=== PATIENT | female | born 1950 | race Caucasian/White ===

== ENCOUNTER → 2024-03-01 08:17 | Outpatient (REF) | payer MEDICARE, OTHER, SELFPAY ==
[2024-03-01 09:41] LABS: % Basophils 1.2 % (0-2); % Eosinophils 6.9 % (0-6); % Lymphocytes 35.5 % (20.5-51.1); % Monocytes 19.9 % (1.7-9.3); % Neutrophils 36.5 % (42.2-75.2); Absolute Eosinophils 0.2 10^3/uL (0-0.7); Absolute Lymphocytes 1.2 10^3/uL (1.2-3.4); Absolute Monocytes 0.7 10^3/uL (0.1-0.6); Absolute Neutrophils 1.3 10^3/uL (1.4-6.5); Hematocrit 42.2 % (37.0-47.0); Hemoglobin 14.2 g/dL (12.0-16.0); Mean Corp Hgb Conc. 33.6 g/dL (33.0-37.0); Mean Corpuscular Hgb 31.6 pg (27.0-31.0); Mean Corpuscular Volume 93.8 fL (81.0-99.0); Mean Platelet Volume 9.5 fL (7.4-10.4); Nucleated Red Blood Cells % 0 %; Platelet Count 276 10^3/uL (130-400); Red Cell Dist. Width 12.9 % (11.5-14.5); White Blood Cell Count 3.5 10^3/uL (4.8-10.8)
[2024-03-01 10:28] LABS: ALT (SGPT) 17 U/L (0-35); AST (SGOT) 31 U/L (14-36); Albumin 4.3 g/dl (3.5-5.0); Alkaline Phosphatase 90 U/L (38-126); Blood Urea Nitrogen 17 mg/dl (7-17); Calcium 9.4 mg/dl (8.4-10.2); Carbon Dioxide 30 mmol/L (22-30); Chloride 102 mmol/L (98-107); Glucose 87 mg/dl (70-99); HDL Cholesterol 95 mg/dl; LDL Cholesterol, Calculated 128 mg/dl; Potassium 4.5 mmol/L (3.5-5.1); Sodium 142 mmol/L (135-145); Total Bilirubin 0.6 mg/dl (0.2-1.3); Total Cholesterol 238 mg/dl (50-199); Total Protein 6.8 g/dl (6.3-8.2); Triglyceride 75 mg/dl (10-149); Very Low Density Lipoprotein 15 mg/dl (0-30); eGFR > 60.00
== END ==
LOC: REG 08:17
PROVIDERS: ATTENDING PHYSICIAN Physician Assistant
DX: E78.00 Pure hypercholesterolemia, unspecified (principal); D64.9 Anemia, unspecified; R79.9 Abnormal finding of blood chemistry, unspecified
CPT/HCPCS: 36415; 80053; 80061; 85025

== ENCOUNTER → 2024-04-14 09:21 | Outpatient (REF) | payer MEDICARE, OTHER, SELFPAY ==
[2024-04-14 10:28] LABS: Erythrocyte Sed Rate 10 mm/hour (0-20)
[2024-04-14 10:51] LABS: C-Reactive Protein < 5.00 mg/L (0.0-10.00)
== END ==
LOC: REG 09:21
PROVIDERS: ATTENDING PHYSICIAN Physician Assistant
DX: R40.4 Transient alteration of awareness (principal); H53.9 Unspecified visual disturbance; R51.9 Headache, unspecified; D72.819 Decreased white blood cell count, unspecified
CPT/HCPCS: 36415; 85652; 86140

== ENCOUNTER → 2024-04-19 08:59 | Outpatient (REF) | payer MEDICARE, OTHER, SELFPAY | LOC: HWRCS 08:59 | PROVIDERS: ATTENDING PHYSICIAN Physician Assistant | DX: R40.4 Transient alteration of awareness (principal); H53.9 Unspecified visual disturbance; R51.9 Headache, unspecified | CPT/HCPCS: 93306 ==

== ENCOUNTER → 2024-05-05 09:22 | Outpatient (REF) | payer MEDICARE, OTHER, SELFPAY | LOC: HWRAD 09:22 | PROVIDERS: ATTENDING PHYSICIAN Physician Assistant | DX: M85.80 Other specified disorders of bone density and structure, unspecified site (principal); M81.0 Age-related osteoporosis without current pathological fracture | CPT/HCPCS: 77080 ==

== ENCOUNTER → 2024-05-10 09:50 | Outpatient (REF) | payer MEDICARE, OTHER, SELFPAY ==
[2024-05-10 10:38] LABS: % Basophils 0.5 % (0-2); % Eosinophils 4.4 % (0-6); % Immature Granulocytes 0.2 % (0-0.5); % Lymphocytes 34.6 % (20.5-51.1); % Monocytes 9.2 % (1.7-9.3); % Neutrophils 51.1 % (42.2-75.2); Absolute Eosinophils 0.2 10^3/uL (0-0.7); Absolute Lymphocytes 1.5 10^3/uL (1.2-3.4); Absolute Monocytes 0.4 10^3/uL (0.1-0.6); Absolute Neutrophils 2.2 10^3/uL (1.4-6.5); Hematocrit 41.3 % (37.0-47.0); Hemoglobin 14.2 g/dL (12.0-16.0); Mean Corp Hgb Conc. 34.4 g/dL (33.0-37.0); Mean Corpuscular Hgb 31.6 pg (27.0-31.0); Mean Platelet Volume 9.3 fL (7.4-10.4); Nucleated Red Blood Cells % 0 %; Platelet Count 294 10^3/uL (130-400); Red Blood Cell Count 4.49 10^6/uL (4.20-5.40); Red Cell Dist. Width 12.4 % (11.5-14.5); White Blood Cell Count 4.4 10^3/uL (4.8-10.8)
== END ==
LOC: REG 09:50
PROVIDERS: ATTENDING PHYSICIAN Physician Assistant
DX: D72.819 Decreased white blood cell count, unspecified (principal)
CPT/HCPCS: 36415; 85025

== ENCOUNTER → 2024-05-21 11:06 | Outpatient (REF) | payer MEDICARE, OTHER, SELFPAY | LOC: MRI 3T 11:06 | PROVIDERS: ATTENDING PHYSICIAN Physician Assistant | DX: R40.4 Transient alteration of awareness (principal); H53.9 Unspecified visual disturbance; R51.9 Headache, unspecified | CPT/HCPCS: 70553; A9575 ==

== ENCOUNTER → 2024-06-02 11:05 | Outpatient (REF) | payer MEDICARE, OTHER, SELFPAY | LOC: RAD 11:05 | PROVIDERS: ATTENDING PHYSICIAN Physician Assistant | DX: R40.4 Transient alteration of awareness (principal); H53.9 Unspecified visual disturbance; R51.9 Headache, unspecified; I34.0 Nonrheumatic mitral (valve) insufficiency; E78.00 Pure hypercholesterolemia, unspecified; R41.82 Altered mental status, unspecified | CPT/HCPCS: 93880 ==

== ENCOUNTER → 2024-07-01 08:28 | Outpatient (REF) | payer MEDICARE, OTHER, SELFPAY | LOC: WDC 08:28 | PROVIDERS: ATTENDING PHYSICIAN Physician Assistant | DX: Z12.31 Encounter for screening mammogram for malignant neoplasm of breast (principal) | CPT/HCPCS: 77063; 77067 ==

== ENCOUNTER → 2024-08-02 10:15 | Outpatient (REF) | payer MEDICARE, OTHER, SELFPAY | LOC: RAD 10:15 | PROVIDERS: ATTENDING PHYSICIAN Urology; FAMILY PHYSICIAN Physician Assistant | DX: N13.5 Crossing vessel and stricture of ureter without hydronephrosis (principal) | CPT/HCPCS: 78708; A9539 ==

== ENCOUNTER → 2024-08-18 09:26 | Outpatient (REF) | payer MEDICARE, OTHER, SELFPAY ==
[2024-08-18 11:00] LABS: Blood Urea Nitrogen 22 mg/dl (7-17); Calcium 9.1 mg/dl (8.4-10.2); Carbon Dioxide 29 mmol/L (22-30); Chloride 103 mmol/L (98-107); Glucose 89 mg/dl (70-99); Potassium 4.8 mmol/L (3.5-5.1); Sodium 139 mmol/L (135-145); eGFR > 60.00
== END ==
LOC: REG 09:26
PROVIDERS: ATTENDING PHYSICIAN Urology; FAMILY PHYSICIAN Physician Assistant
DX: N13.5 Crossing vessel and stricture of ureter without hydronephrosis (principal)
CPT/HCPCS: 36415; 80048

== ENCOUNTER → 2024-08-23 07:12 | Outpatient (REF) | payer MEDICARE, OTHER, SELFPAY | LOC: RAD 07:12 | PROVIDERS: ATTENDING PHYSICIAN Urology; FAMILY PHYSICIAN Physician Assistant | DX: N13.5 Crossing vessel and stricture of ureter without hydronephrosis (principal); N13.30 Unspecified hydronephrosis | CPT/HCPCS: 74178; Q9967 ==

== ENCOUNTER → 2024-09-30 08:37 | Outpatient (REF) | payer MEDICARE, OTHER, SELFPAY ==
[2024-09-30 11:32] LABS: Hematocrit 39.3 % (37.0-47.0); Mean Corp Hgb Conc. 33.1 g/dL (33.0-37.0); Mean Corpuscular Hgb 30.4 pg (27.0-31.0); Mean Platelet Volume 9.6 fL (7.4-10.4); Platelet Count 302 10^3/uL (130-400); Red Blood Cell Count 4.27 10^6/uL (4.20-5.40); Red Cell Dist. Width 13.3 % (11.5-14.5); White Blood Cell Count 4.4 10^3/uL (4.8-10.8)
== END ==
LOC: SDSPAT 08:37
PROVIDERS: ATTENDING PHYSICIAN Urology; FAMILY PHYSICIAN Physician Assistant
DX: Z01.818 Encounter for other preprocedural examination (principal)
CPT/HCPCS: 36415; 85027

== ENCOUNTER 2024-10-14 06:19 | Day surgery (SDC) | payer MEDICARE, OTHER, SELFPAY ==
[2024-09-30 12:45] VITALS: BMI 23.6
[2024-10-14] VITALS (7 sets, daily range): BP systolic 136–162; BP diastolic 56–73; BMI 23.6
[2024-10-14] MEDS: NORMOSOL-R/PLASMALYTE-A 1000 IV (08:16)
== END 2024-10-14 11:05 | disposition home or self-care (01) ==
LOC: SDS 06:19
PROVIDERS: ATTENDING PHYSICIAN Urology
DX: N13.5 Crossing vessel and stricture of ureter without hydronephrosis (principal)
CPT/HCPCS: 52332; 74420; 76000; A4300; C1726; C1769; C2617

== ENCOUNTER → 2024-10-15 13:47 | Outpatient (REF) | payer MEDICARE, OTHER, SELFPAY ==
[2024-10-15 17:36] LABS: Urine Albumin 4+ (Neg - Trace); Urine Bilirubin Negative (Negative); Urine Character Slightly Cloudy (Clear); Urine Color Yellow; Urine Glucose Negative (Negative); Urine Ketone 1+ (Negative); Urine Leukocyte 3+ (Negative); Urine Nitrite Positive (Negative); Urine Occult Blood 4+ (Negative); Urine Urobilinogen 1+ (Neg - 1+)
[2024-10-15 17:46] LABS: Urine Squamous Cell 0-2 /LPF (Few)
[2024-10-15 17:47] LABS: Urine Bacteria Few (Negative); Urine Red Blood Cell >100 /HPF (0-2)
== END ==
LOC: CLAB 13:47
PROVIDERS: ATTENDING PHYSICIAN Urology
DX: N39.0 Urinary tract infection, site not specified (principal)
CPT/HCPCS: 81003; 81015; 87086

== ENCOUNTER → 2024-10-18 07:30 | Outpatient (REF) | payer MEDICARE, OTHER, SELFPAY ==
[2024-10-18 08:57] LABS: % Basophils 0.6 % (0-2); % Eosinophils 5.7 % (0-6); % Immature Granulocytes 0.3 % (0-0.5); % Lymphocytes 27.6 % (20.5-51.1); % Monocytes 11.5 % (1.7-9.3); % Neutrophils 54.3 % (42.2-75.2); Absolute Eosinophils 0.4 10^3/uL (0-0.7); Absolute Lymphocytes 1.8 10^3/uL (1.2-3.4); Absolute Monocytes 0.7 10^3/uL (0.1-0.6); Absolute Neutrophils 3.5 10^3/uL (1.4-6.5); Hematocrit 41.5 % (37.0-47.0); Hemoglobin 13.9 g/dL (12.0-16.0); Mean Corp Hgb Conc. 33.5 g/dL (33.0-37.0); Mean Corpuscular Hgb 30.3 pg (27.0-31.0); Mean Corpuscular Volume 90.6 fL (81.0-99.0); Mean Platelet Volume 9.3 fL (7.4-10.4); Nucleated Red Blood Cells % 0 %; Platelet Count 323 10^3/uL (130-400); Red Blood Cell Count 4.58 10^6/uL (4.20-5.40); Red Cell Dist. Width 13.3 % (11.5-14.5); White Blood Cell Count 6.4 10^3/uL (4.8-10.8)
[2024-10-18 09:22] LABS: ALT (SGPT) 22 U/L (0-35); AST (SGOT) 23 U/L (14-36); Albumin 4.1 g/dl (3.5-5.0); Alkaline Phosphatase 89 U/L (38-126); Blood Urea Nitrogen 30 mg/dl (7-17); Calcium 9.3 mg/dl (8.4-10.2); Carbon Dioxide 28 mmol/L (22-30); Chloride 105 mmol/L (98-107); Glucose 93 mg/dl (70-99); HDL Cholesterol 73 mg/dl; LDL Cholesterol, Calculated 156 mg/dl; Potassium 5.1 mmol/L (3.5-5.1); Sodium 140 mmol/L (135-145); Total Bilirubin 0.7 mg/dl (0.2-1.3); Total Cholesterol 249 mg/dl (50-199); Triglyceride 104 mg/dl (10-149); Very Low Density Lipoprotein 20 mg/dl (0-30); eGFR > 60.00
== END ==
LOC: REG 07:30
PROVIDERS: ATTENDING PHYSICIAN Internal Medicine Hematology & Oncology; FAMILY PHYSICIAN Physician Assistant
DX: R40.4 Transient alteration of awareness (principal); Z85.828 Personal history of other malignant neoplasm of skin; Z98.49 Cataract extraction status, unspecified eye; N95.1 Menopausal and female climacteric states; N95.2 Postmenopausal atrophic vaginitis; M85.80 Other specified disorders of bone density and structure, unspecified site; M17.12 Unilateral primary osteoarthritis, left knee; B00.89 Other herpesviral infection; E78.00 Pure hypercholesterolemia, unspecified; D72.819 Decreased white blood cell count, unspecified; H53.9 Unspecified visual disturbance; R51.9 Headache, unspecified; Z00.00 Encounter for general adult medical examination without abnormal findings; Z12.31 Encounter for screening mammogram for malignant neoplasm of breast
CPT/HCPCS: 36415; 80053; 80061; 85025

== ENCOUNTER 2024-11-08 10:44 | Emergency (ER) | payer MEDICARE, OTHER, SELFPAY ==
[2024-11-08 10:52] VITALS: BP 156/68
--- NOTE | 2024-11-08 12:16 | ED.GENMED ---
History of Present Illness
<LAURA Maradiaga - Last Filed: 11/08/24 17:01>
General
Chief Complaint: Musculo-Skeletal Complaint
Source: patient
Exam Limitations: none
Time Seen by Provider: 11/08/24 12:08
Nursing documentation reviewed up to this point in time: agreed with
History of Present Illness
History of Present Illness:
Patient is a 73-year-old female who presents to the ER complaining of right middle finger infection. She started noticing swelling to the right middle finger October 31 after gardening, though she denies any exact injury. She saw her family doctor on
the and started on doxycycline. She reports despite antibiotics she has had increasing swelling or redness to the finger. She has been trying to soak the area and noticed a small amount of drainage from around cuticle.
She denies any fever or chills. She is right-hand dominant.
Past History
<LAURA Maradiaga - Last Filed: 11/08/24 17:01>
Past History
ED Past Medical History: None; Negative Asthma, HTN, Hypercholesterolemia or NIDDM
ED Past Surgical History: None
Social History
Tobacco: Non-smoker
Alcohol: Occasional
Personal: Other (Common Law marriage)
Living: with family
Review of Systems
<LAURA Maradiaga - Last Filed: 11/08/24 17:01>
Review of Systems
Allergies reviewed?: Yes
All Other Systems: ROS reviewed and negative except as documented in HPI and ROS
Constitutional: Denies fever, fatigue or chills
Musculoskeletal: Reports other (right middle finger swelling/redness )
Skin: Reports no symptoms
Neurological: Reports no symptoms
Psychiatric: Reports no symptoms
Phy Exam
<LAURA Maradiaga - Last Filed: 11/08/24 17:01>
General Physical Exam
General Presentation: no apparent distress
General age: appears stated age
General Skin: warm and dry
General Habitus: normal
General Mental: alert
General Hydration: appears well hydrated
Neurological Exam
Neurological Exam: alert and oriented x3
Musculoskeletal Exam
Musculoskeletal Exam: other (rue with strong pulses right middle finger with obvious redness and swelling from the distal phalanx to PIP joint able to flex and extend no discomfort with passive extension normal sensation)
Skin Exam
Skin Exam: normal color and warm/dry
Psychiatric Exam
Psychiatric Exam: normal mood/affect
Course
<LAURA Maradiaga - Last Filed: 11/08/24 17:01>
Orders/Labs/Results
Orders:
Orders
11/08/24 13:17
Finger(s)/Thumb 2 View Rt [CR Finger(s)/thumb Min 2 Vw Rt] Urgent
Comment:
Reason For Exam: middle finger infection
11/08/24 14:31
Sulfamethox./Trimethoprim Ds [Bactrim Ds 800 mg/160 mg] 1 tablet PO NOW STA
Vital Signs
Initial and Last Documented VS:
Initial Vital Signs
Temp Pulse Resp BP Pulse Ox
97.9 F 67 16 156/68 98
11/08/24 10:52 11/08/24 10:52 11/08/24 10:52 11/08/24 10:52 11/08/24 10:52
Last Documented Vital Signs
Temp Pulse Resp BP Pulse Ox
97.9 F 67 16 156/68 98
11/08/24 10:52 11/08/24 10:52 11/08/24 10:52 11/08/24 10:52 11/08/24 10:52
Clinical Data Management Director consulted with Physician
Clinical Data Management Director consulted with physician?: Yes
Name of Physician Consulted: Massimo
<Mukund Betancourt DO - Last Filed: 11/08/24 13:27>
Orders/Labs/Results
Orders:
Orders
11/08/24 13:17
Finger(s)/Thumb 2 View Rt [CR Finger(s)/thumb Min 2 Vw Rt] Urgent
Comment:
Reason For Exam: middle finger infection
11/08/24 14:31
Sulfamethox./Trimethoprim Ds [Bactrim Ds 800 mg/160 mg] 1 tablet PO NOW STA
Vital Signs
Initial and Last Documented VS:
Initial Vital Signs
Temp Pulse Resp BP Pulse Ox
97.9 F 67 16 156/68 98
11/08/24 10:52 11/08/24 10:52 11/08/24 10:52 11/08/24 10:52 11/08/24 10:52
Last Documented Vital Signs
Temp Pulse Resp BP Pulse Ox
97.9 F 67 16 156/68 98
11/08/24 10:52 11/08/24 10:52 11/08/24 10:52 11/08/24 10:52 11/08/24 10:52
Procedures
<LAURA Maradiaga - Last Filed: 11/08/24 17:01>
Other
Indication for procedure:: Swelling of right middle
Procedure completed by: Myself
Additional Procedure:
Alcohol prep was used and the patient was digitally blocked with lidocaine 1% without epinephrine. After anesthetized, area was cleaned with Betadine and I used an 11 blade scalpel in order to drain underneath the cuticle for possible paronychia
however no obvious drainage. Pt tolerated procedure well. Warm water soak was done after .
<LAURA Maradiaga - Last Filed: 11/08/24 17:01>
MDM/Problems Addressed
Differential Diagnosis Includes:
Not limited to finger infection, paronychia, less likely felon, tenosynovitis
MDM/Problems Addressed:
As documented patient is a 73-year-old female who presents with right middle finger infection. She has been on doxycycline since November 03 with no improvement. Patient has no exact injury but was gardening and noticed symptoms of increasing swelling
and redness after gardening. I attempted to drain for possible paronychia however no drainage and return. Patient has good range of motion good flexion extension no pain on passive extension or flexion not consistent with tenosynovitis. No acute
findings on x-ray. Patient denies any fevers and is afebrile. Case reviewed with ED physician evaluated patient will add additional antibiotic, Bactrim /warm water soaks. Patient however will need close outpatient follow-up orthopedics. I did
speak with Ortho on-call Dr. Suero in order to expedite follow-up with hand.
I did also review with patient return precautions if any concerning symptoms worsen or can or occur.
<LAURA Maradiaga - Last Filed: 11/08/24 17:01>
*Radiology
Radiology exam reviewed: radiology read reviewed
*Pulse Oximetry
Patient hypoxic: no
*Critical Care Note
Total Time (30-74mins, 75-104mins- exclusive of procedures): Not Applicable
<LAURA Maradiaga - Last Filed: 11/08/24 17:01>
Patient Management
Discussion with other providers: Reinspector (DR Suero )
ED Attending Note
<LAURA Maradiaga - Last Filed: 11/08/24 17:01>
-
Portions of this chart may have been created with voice recognition software.� Occasional wrong word or��sound alike� substitutions may have occurred due to the inherent limitations of voice recognition software.
<Mukund Betancourt DO - Last Filed: 11/08/24 13:27>
ED Attending Note
Patient seen and examined by attending physician: Yes
I performed the substantive portion of visit, reviewed & personally made and approve the management plan that is documented in note by myself or BAYRON.: Yes
Discharge Plan
Departure
Patient Disposition: Home (Routine Discharge)
Date of Disposition: 11/08/24
Time of Disposition: 14:27
Patient with high blood pressure during this ER visit?: Yes
Condition: Fair
Covid-19: Not Applicable
Discharge Problem:
Finger infection
Instructions: Common finger infections - ED discharge instructions, BLOOD PRESSURE
Prescriptions:
New
sulfamethoxazole-trimethoprim [Bactrim DS] 800-160 mg tablet
1 tab PO BID Qty: 20 0RF
No Action
biotin 5 MG capsule
6,000 mcg PO DAILY
Fish Oil 1 EACH capsule,delayed release(DR/EC)
1 ea PO DAILY
[id number] serr [Osteo Bi-Flex (5-Loxin)] 1 EACH tablet
1 ea PO DAILY
Calcium And Vitamin D3
1 - 2 tab PO DAILY
Cholecalciferol (Vitamin D3) [Vitamin D3] 50 MCG Capsule
50 mcg PO DAILY
multivitamin Tablet
1 tab PO DAILY
betamethasone valerate 0.1 % Cream
1 applic TOPICAL DAILY
magnesium 200 mg Tablet
400 mg PO DAILY
Ocuvite Tablet
1 tab PO DAILY
Referrals:
Estephania Dave PA [Family Provider] -
Davey Malave MD [Active] -
Activity Restrictions/Additional Instructions:
As discussed continue doxycycline however you will be started on Bactrim as well. You were given the first dose here in the ER. This medication was sent to pharmacy.
Be sure to take this medicine as directed twice a day for the next 10 days. Please closely follow-up with orthopedics. Continue to do hot water soaks several times a day.
Call orthopedic office tomorrow to make an appointment to be evaluated by hand specialist in the next 2 days. Return however to the ER if any worsening of symptoms or increased pain swelling redness red or chills.
Interventions
Interventions:
*Risk Screen - Suicide Last Done: 11/08/24 13:23
*General Assessment Last Done: 11/08/24 13:23
*Neglect/Abuse Screening Last Done: 11/08/24 13:23
*ED- Fall Risk Assessment Last Done: 11/08/24 13:23
*ED COVID-19 Vaccine History Last Done: 11/08/24 13:23
*Nursing Disposition Last Done: 11/08/24 14:41
ED-Musculoskeletal Assessment Last Done: 11/08/24 13:23
Discharge Date and Time
Discharge Date/Time: 11/08/24 14:42
Print Language: POLISH
[2024-11-08] MEDS: BACTRIM DS 800 MG/160 MG 1 TABLET PO (14:39)
== END 2024-11-08 14:42 | disposition home or self-care (01) ==
LOC: EMR 10:44
PROVIDERS: EMERGENCY PHYSICIAN Emergency Medicine; FAMILY PHYSICIAN Physician Assistant
DX: L08.9 Local infection of the skin and subcutaneous tissue, unspecified (principal); M79.89 Other specified soft tissue disorders; M79.644 Pain in right finger(s); R03.0 Elevated blood-pressure reading, without diagnosis of hypertension; I34.1 Nonrheumatic mitral (valve) prolapse; K57.92 Diverticulitis of intestine, part unspecified, without perforation or abscess without bleeding; M19.90 Unspecified osteoarthritis, unspecified site; Z87.442 Personal history of urinary calculi; Z85.828 Personal history of other malignant neoplasm of skin; Z91.048 Other nonmedicinal substance allergy status
CPT/HCPCS: 99283; 10060; 73140

== ENCOUNTER 2025-01-03 07:43 | Emergency (ER) | payer MEDICARE, OTHER, SELFPAY ==
[2025-01-03 07:54] VITALS: BP 151/64
[2025-01-03 08:17] LABS: Hematocrit 41.9 % (37.0-47.0); Hemoglobin 14.2 g/dL (12.0-16.0); Mean Corp Hgb Conc. 33.9 g/dL (33.0-37.0); Mean Corpuscular Volume 90.3 fL (81.0-99.0); Nucleated Red Blood Cells % 0 %; Platelet Count 287 10^3/uL (130-400); Red Cell Dist. Width 12.9 % (11.5-14.5); Urine Character Clear (Clear)
[2025-01-03 08:25] LABS: Urine Red Blood Cell 0-2 /HPF (0-2); Urine White Cell 0-2 /HPF (0-5)
[2025-01-03 08:33] LABS: ALT (SGPT) 18 U/L (0-35); AST (SGOT) 31 U/L (14-36); Albumin 4.3 g/dl (3.5-5.0); Alkaline Phosphatase 105 U/L (38-126); Blood Urea Nitrogen 27 mg/dl (7-17); Calcium 9.3 mg/dl (8.4-10.2); Carbon Dioxide 28 mmol/L (22-30); Chloride 106 mmol/L (98-107); Glucose 99 mg/dl (70-99); Lipase 108 U/L (23-300); Potassium 4.8 mmol/L (3.5-5.1); Sodium 138 mmol/L (135-145); Total Protein 7.4 g/dl (6.3-8.2); eGFR > 60.00
[2025-01-03] MEDS: TORADOL 15 MG IV (09:04)
--- NOTE | 2025-01-03 09:15 | ED.GENMED ---
History of Present Illness
General
Chief Complaint: Flank Pain
Time Seen by Provider: 01/03/25 08:42
History of Present Illness
History of Present Illness:
74-year-old female with history of right ureteropelvic junction obstruction presenting to the emergency department for right flank pain. Patient reports symptoms started yesterday. She does note that the pain is worse with certain movements that
she thought that symptoms may be secondary to musculoskeletal strain or spasm. She has been taking Aleve without significant relief. Notes urinary issues at baseline, no acute change. In October 2024, did require stenting to her ureter secondary to
obstruction, unclear etiology. Denies abdominal pain, chest pain, difficulty breathing. Denies blood in her urine. She follows with urology here. Denies additional acute medical complaints
Past History
Past History
ED Past Medical History: None; Negative Asthma, HTN, Hypercholesterolemia or NIDDM
ED Past Surgical History: None
Social History
Tobacco: Non-smoker
Alcohol: Occasional
Personal: Other (Common Law marriage)
Living: with family
Phy Exam
Physical Exam
Physical Exam:
General: Well-appearing, no clinical signs of dehydration, nontoxic and in no acute distress
HEENT: protecting airway
Neck: appears supple
CV: Normal heart rate, regular rhythm
Resp: No accessory muscle use, no increased work of breathing, lungs clear to auscultation bilaterally
Abd: Soft and non-distended, no tenderness to palpation. Mild tenderness to the right flank/thoracic musculature on palpation. No overlying skin changes.
Extremities: No deformities, no swelling, no erythema, pulses and sensation intact
Neuro: alert, no focal neurologic deficit
: deferred
Rectal: deferred
Psych: Normal affect
Skin: Intact
Course
Orders/Labs/Results
Orders:
Orders
01/03/25 08:06
Complete Blood Count/With Diff Urgent
Comprehensive Metabolic Panel Urgent
Lipase Urgent
Urinalysis Reflex To Culture Urgent
Date Specimen was Collected: 01/03/25
Time Specimen was Collected: 07:58
Urine Microscopic Reflex Cult Urgent
01/03/25 08:57
CT Abd/pelvis W Iv Cont Urgent
Comment:
Reason For Exam: R-flank pain, hx ureteral issues
Ketorolac [Toradol] 15 mg IV NOW STA
Abnormal Lab Results
01/03/25
08:06
BUN 27 H mg/dl
(7-17)
Urine Albumin (Reflex) 1+ A
(Neg - Trace)
01/03/25 08:06
01/03/25 08:06
Vital Signs
Initial and Last Documented VS:
Initial Vital Signs
Temp Pulse Resp BP Pulse Ox
97.6 F 58 16 151/64 99
01/03/25 07:54 01/03/25 07:54 01/03/25 07:54 01/03/25 07:54 01/03/25 07:54
Last Documented Vital Signs
Temp Pulse Resp BP Pulse Ox
97.6 F 58 18 155/70 98
01/03/25 07:54 01/03/25 10:25 01/03/25 10:25 01/03/25 10:25 01/03/25 10:25
MDM/Problems Addressed
MDM/Problems Addressed:
74-year-old female with history of ureteropelvic junction obstruction presenting to the emergency department for right flank pain since yesterday. Vital signs are significant for mild hypertension.
On exam, patient is resting comfortably, no acute distress or discomfort. Patient with benign examination, mild tenderness to the right flank region with suspicion for possible musculoskeletal component. Labs obtained prior to my assessment,
normal renal function, no signs of urinary tract infection, no microscopic hematuria. Lower suspicion for acute kidney issue, however given patient's history and location of pain, plan for CT imaging.
11:30 -CT shows moderate dilation of the right renal pelvis and transition caliber at the ureteropelvic junction, which appears slightly greater than on CT from August 23, 2024. This is prior to when patient had her stent placed. Did discuss with
urology on-call, Dr. David who notes that if patient's pain is controlled, afebrile and hemodynamically stable, can follow-up in the office with her urologist.. Did discuss with patient, offered admission for pain control and possible stent
placement during admission versus outpatient follow-up. Patient would prefer to follow-up outpatient, however strict return precautions were communicated including any increased pain, or development of fever. Patient verbalized understanding. She
will call the urology office today for close follow-up
*Pulse Oximetry
SaO2: 99
Oxygen Mode of Delivery: Room air
Patient hypoxic: no
*Critical Care Note
Total Time (30-74mins, 75-104mins- exclusive of procedures): Not Applicable
ED Attending Note
-
Portions of this chart may have been created with voice recognition software.� Occasional wrong word or��sound alike� substitutions may have occurred due to the inherent limitations of voice recognition software.
Discharge Plan
Departure
Patient Disposition: Home (Routine Discharge)
Date of Disposition: 01/03/25
Time of Disposition: 11:37
Patient with high blood pressure during this ER visit?: No
Condition: Good
Discharge Problem:
Obstruction of right ureteropelvic junction (UPJ)
Instructions: Hydronephrosis in adults
Prescriptions:
New
ibuprofen 600 mg tablet
600 mg PO Q8H PRN (Reason: Pain) Qty: 20 0RF
oxycodone 5 mg capsule
5 mg PO Q8H PRN (Reason: Pain) Qty: 6 0RF
No Action
biotin 5 MG capsule
6,000 mcg PO DAILY
Fish Oil 1 EACH capsule,delayed release(DR/EC)
1 ea PO DAILY
[id number] serr [Osteo Bi-Flex (5-Loxin)] 1 EACH tablet
1 ea PO DAILY
Calcium And Vitamin D3
1 - 2 tab PO DAILY
Cholecalciferol (Vitamin D3) [Vitamin D3] 50 MCG Capsule
50 mcg PO DAILY
multivitamin Tablet
1 tab PO DAILY
betamethasone valerate 0.1 % Cream
1 applic TOPICAL DAILY
magnesium 200 mg Tablet
400 mg PO DAILY
Ocuvite Tablet
1 tab PO DAILY
sulfamethoxazole-trimethoprim [Bactrim DS] 800-160 mg tablet
1 tab PO BID Qty: 20 0RF
Referrals:
Estephania Dave PA [Family Provider, Family Practice]
Mike Cuadra MD [Active, Urology]
Activity Restrictions/Additional Instructions:
You were seen in the emergency department for right-sided back pain
You were found to have reoccurrence of your prior kidney issue, with swelling to the right kidney and obstruction at the ureteropelvic junction. You may need a stent in your ureter. In discussion with urology, it is recommended that you call for
an appointment for close follow-up in their office.
Please follow-up closely with your primary care physician.
Return to the emergency department for any worsening of your symptoms, or any development of chest pain, difficulty breathing, abdominal pain with persistent vomiting and inability to tolerate food or liquid by mouth (concern for dehydration),
weakness, headache or confusion, fever greater than 100.4, or any additional symptoms that are concerning to you.
Thank you for choosing [facility].
Interventions
Interventions:
*Risk Screen - Suicide Last Done: 01/03/25 07:54
*General Assessment Last Done: 01/03/25 07:54
*Neglect/Abuse Screening Last Done: 01/03/25 07:54
*ED COVID-19 Vaccine History Last Done: 01/03/25 07:54
MY-Qeathl-Ffkgsyvlcb Assessment Last Done: 01/03/25 09:20
ED-Female Genitourinary Assessment Last Done: 01/03/25 09:20
Discharge Date and Time
Print Language: CYPRIOT
[2025-01-03 10:25] VITALS: BP 155/70
[2025-01-03 11:45] VITALS: BP 145/78
== END 2025-01-03 11:49 | disposition home or self-care (01) ==
LOC: EMR 07:43
PROVIDERS: Emergency Medicine; EMERGENCY PHYSICIAN Student in an Organized Health Care Education/Training Program; FAMILY PHYSICIAN Physician Assistant
DX: R10.9 Unspecified abdominal pain (principal); N13.5 Crossing vessel and stricture of ureter without hydronephrosis; Z91.048 Other nonmedicinal substance allergy status
CPT/HCPCS: 99284; 96374; 74177; 80053; 81003; 81015; 83690; 85025; Q9967

== ENCOUNTER → 2025-01-20 10:09 | Outpatient (REF) | payer MEDICARE, OTHER, SELFPAY | LOC: RAD 10:09 | PROVIDERS: ATTENDING PHYSICIAN Urology; FAMILY PHYSICIAN Physician Assistant | DX: N13.5 Crossing vessel and stricture of ureter without hydronephrosis (principal) | CPT/HCPCS: 78708; A9539 ==

== ENCOUNTER → 2025-04-25 06:36 | Outpatient (REF) | payer MEDICARE, OTHER, SELFPAY ==
[2025-04-25 07:39] LABS: Hematocrit 41.5 % (37.0-47.0); Hemoglobin 13.5 g/dL (12.0-16.0); Mean Corp Hgb Conc. 32.5 g/dL (33.0-37.0); Mean Corpuscular Volume 92.4 fL (81.0-99.0); Nucleated Red Blood Cells % 0 %; Platelet Count 312 10^3/uL (130-400); Red Cell Dist. Width 12.5 % (11.5-14.5)
[2025-04-25 08:13] LABS: ALT (SGPT) 16 U/L (0-35); AST (SGOT) 22 U/L (14-36); Albumin 4.1 g/dl (3.5-5.0); Alkaline Phosphatase 90 U/L (38-126); Blood Urea Nitrogen 24 mg/dl (7-17); Calcium 9.0 mg/dl (8.4-10.2); Chloride 103 mmol/L (98-107); Glucose 88 mg/dl (70-99); HDL Cholesterol 92 mg/dl; LDL Cholesterol, Calculated 140 mg/dl; Potassium 4.5 mmol/L (3.5-5.1); Sodium 140 mmol/L (135-145); Total Protein 6.9 g/dl (6.3-8.2); Very Low Density Lipoprotein 20 mg/dl (0-30); eGFR > 60.00
[2025-04-25 08:21] LABS: Carbon Dioxide 31 mmol/L (22-30)
== END ==
LOC: RCS 06:36
PROVIDERS: ATTENDING PHYSICIAN Internal Medicine Cardiovascular Disease; FAMILY PHYSICIAN Physician Assistant; REFERRING PHYSICIAN Urology
DX: I34.0 Nonrheumatic mitral (valve) insufficiency (principal); E78.00 Pure hypercholesterolemia, unspecified; Z85.828 Personal history of other malignant neoplasm of skin; N95.2 Postmenopausal atrophic vaginitis; M85.80 Other specified disorders of bone density and structure, unspecified site; M17.12 Unilateral primary osteoarthritis, left knee; B00.89 Other herpesviral infection; B00.9 Herpesviral infection, unspecified; L90.0 Lichen sclerosus et atrophicus; N13.5 Crossing vessel and stricture of ureter without hydronephrosis
CPT/HCPCS: 36415; 80053; 80061; 85025; 93306

== ENCOUNTER → 2025-05-03 06:47 | Outpatient (REF) | payer MEDICARE, OTHER, SELFPAY | LOC: MRI 06:47 | PROVIDERS: ATTENDING PHYSICIAN Student in an Organized Health Care Education/Training Program; FAMILY PHYSICIAN Physician Assistant | DX: M79.671 Pain in right foot (principal) | CPT/HCPCS: 73718 ==

== ENCOUNTER → 2025-05-09 08:00 | Outpatient (REF) | payer MEDICARE, OTHER, SELFPAY | LOC: HWRAD 08:00 | PROVIDERS: ATTENDING PHYSICIAN Physician Assistant | DX: E78.00 Pure hypercholesterolemia, unspecified (principal) | CPT/HCPCS: 75571 ==